=== PATIENT | female | born 1980 | race African-American/Black ===

== ENCOUNTER 2016-10-13 21:51 | Day surgery (SDC) | payer OTHER ==
[2016-10-13] MEDS ORDERED: HYDROmorphone 1 MG/ML SYRINGE ONE (22:51)
[2016-10-13] MEDS ORDERED: KETOROLAC 30 MG/ML VIAL ONE (22:51)
[2016-10-13] MEDS ORDERED: ONDANSETRON 4 MG/2 ML VIAL ONE (22:52)
[2016-10-14] MEDS ORDERED: HYDROmorphone 1 MG/ML SYRINGE IVP STA (00:41)
[2016-10-14] MEDS ORDERED: SODIUM CHLORIDE 0.9% 1,000 ML IV ONE ×2 (00:41→01:29)
[2016-10-14] MEDS ORDERED: HYDROmorphone 1 MG/ML SYRINGE ONE (00:49)
[2016-10-14] MEDS ORDERED: ACETAMINOPHEN 1,000 MG/100 ML 100 ML IV STA (01:29)
[2016-10-14] MEDS ORDERED: ACETAMINOPHEN 1,000 MG/100 ML 100 ML IV ONE (01:47)
[2016-10-14] MEDS ORDERED: DEXAMETHASONE 4 MG/ML VIAL IVP ONE (02:48)
[2016-10-14] MEDS ORDERED: fentaNYL 100 MCG/2 ML VIAL IVP ONE (02:48)
[2016-10-14] MEDS ORDERED: PROPOFOL 200 MG/20 ML VIAL IVP ONE (02:48)
[2016-10-14] MEDS ORDERED: MIDAZOLAM 2 MG/2 ML VIAL IVP ONE (02:48)
[2016-10-14] MEDS ORDERED: LIDOCAINE-MPF 2% 5 ML VIAL IM ONE (02:48)
[2016-10-14] MEDS ORDERED: miSOPROStol 200 MCG TABLET PO ONE (02:48)
[2016-10-14] MEDS ORDERED: LACTATED RINGERS 1,000 ML IV ONE ×3 (03:03→03:14)
[2016-10-14] MEDS ORDERED: miSOPROStol 200 MCG TABLET PR ONE (03:17)
== END 2016-10-14 05:12 | disposition home or self-care (01) ==
PROC: 10D17ZZ Extraction of Products of Conception, Retained, Via Natural or Artificial Opening (ICD-10-PCS; principal; 2016-10-14 02:30)
DX: O03.4 Incomplete spontaneous abortion without complication (principal)
CPT/HCPCS: 36415; 59812; 76801; 76817; 85025; 86850; 86900; 86901; 99283; A9270; J0131; J1170; J7120

== ENCOUNTER 2016-12-18 22:14 | Emergency (ER) | payer OTHER ==
[2016-12-18 22:24] VITALS: BP 117/80
[2016-12-18 22:35] LABS: BILIRUBIN,URINE NEGATIVE (NEGATIVE)
--- NOTE | 2016-12-18 22:36 | ED Physician Documentation ---
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) - Past Surgical History Past Surgical History: No - Allergies Allergies/Adverse Reactions: Allergies Allergy/AdvReac Type Severity Reaction Status Date / Time No Known Drug Allergies Allergy Verified 12/18/16 22:22 - Social History Does the pt smoke?: No Smoking Status: Never smoker Does the pt drink ETOH?: No Does the pt have substance abuse?: No - Immunizations Immunizations are current?: Yes - POLST Patient has POLST: No PD ED PE NORMAL - Vitals Vital signs reviewed: Yes - General General: Alert and oriented X 3, No acute distress - HEENT HEENT: Moist mucous membranes - Neck Neck: Supple, no meningeal sign - Cardiac Cardiac: RRR - Respiratory Respiratory: No respiratory distress, Clear bilaterally - Abdomen Abdomen: Soft, Non tender, Non distended - Back Back: No spinal TTP - Derm Derm: Warm and dry, No rash - Neuro Neuro: Alert and oriented X 3 - Psych Psych: Normal mood, Normal affect Results - Vitals Vitals: Vital Signs - 24 hr 12/18/16 22:15 Temperature 36.3 C L Heart Rate 77 Respiratory 16 Rate Blood Pressure 117/80 O2 Saturation 95 Oxygen O2 Source Room air - Labs Labs: Laboratory Tests 12/18/16 12/18/16 12/18/16 21:40 21:40 21:40 WBC 8.9 RBC 4.85 Hgb 14.0 Hct 42.2 MCV 86.9 MCH 28.9 MCHC 33.2 RDW 12.9 Plt Count 281 MPV 8.5 Neut # 5.3 Lymph # 2.8 [place] # 0.5 Eos # 0.2 Baso # 0.0 Absolute Nucleated RBC 0.00 Nucleated RBCs 0.0 Sodium 137 Potassium 4.0 Chloride 106 Carbon Dioxide 25 Anion Gap 6.0 BUN 9 Creatinine 0.5 Estimated GFR (MDRD) 170 Glucose 101 H Calcium 9.3 Total Bilirubin 0.3 AST 19 ALT 16 Alkaline Phosphatase 50 Total Protein 6.7 Albumin 3.8 Globulin 2.9 Albumin/Globulin Ratio 1.3 Lipase 32 Serum HCG, Qual POSITIVE HCG, Quant 975530.00 Urine Color Urine Clarity Urine pH Ur Specific [place] Urine Protein Urine Glucose (UA) Urine Ketones Urine Occult Blood Urine Nitrite Urine Bilirubin Urine Urobilinogen Ur Leukocyte Esterase Ur Microscopic Review Urine Culture Comments 12/18/16 22:30 WBC RBC Hgb Hct MCV MCH MCHC RDW Plt Count MPV Neut # Lymph # [place] # Eos # Baso # Absolute Nucleated RBC Nucleated RBCs Sodium Potassium Chloride Carbon Dioxide Anion Gap BUN Creatinine Estimated GFR (MDRD) Glucose Calcium Total Bilirubin AST ALT Alkaline Phosphatase Total Protein Albumin Globulin Albumin/Globulin Ratio Lipase Serum HCG, Qual HCG, Quant Urine Color YELLOW Urine Clarity CLEAR Urine pH 6.0 Ur Specific [place] 1.020 Urine Protein NEGATIVE Urine Glucose (UA) NEGATIVE Urine Ketones NEGATIVE Urine Occult Blood NEGATIVE Urine Nitrite NEGATIVE Urine Bilirubin NEGATIVE Urine Urobilinogen 0.2 (NORMAL) Ur Leukocyte Esterase NEGATIVE Ur Microscopic Review NOT INDICATED Urine Culture Comments NOT INDICATED PD MEDICAL DECISION MAKING - ED course Complexity details: reviewed results, re-evaluated patient, considered differential, d/w patient, d/w family ED course: Patient is a 36-year-old female who presents to the emergency department with vaginal bleeding while . Bedside ultrasound reveals an intrauterine with a heart rate of 162 bpm. A crown-rump length of 8 weeks and 4 days. This is consistent with her dates. No acute lab findings. We will have her follow-up with her OB for further evaluation and care. No evidence of an acute emergency medical condition at this time. Patient counseled regarding signs and symptoms for which I believe and urgent re- evaluation would be necessary. Patient with good understanding of and agreement to plan and is comfortable going home at this time This document was made in part using voice recognition software. While efforts are made to proofread this document, sound alike and grammatical errors may occur. Departure - Departure Disposition: 01 Home, Self Care Clinical Impression: Threatened Condition: Good Instructions: ED Miscarriage Poss Follow-Up: Melisa Garcia MD [Provider Admit Priv/Credential] - Within 3 Days Comments: Return if you worsen. Everything appears normal tonight. Discharge Date/Time: 12/18/16 23:24
[2016-12-18 22:37] LABS: UA CHARGE (STRIP ONLY) YES; UR CULTURE IF IND NOT INDICATED
[2016-12-18 23:00] LABS: BASOPHILS % (AUTO) 0.4 %; EOSINOPHILS # (AUTO) 0.2 10^3/uL (0.0-0.7); EOSINOPHILS % (AUTO) 1.7 %; HCT - HEMATOCRIT 42.2 % (37.0-47.0); LYMPHOCYTES # (AUTO) 2.8 10^3/uL (1.5-3.5); LYMPHOCYTES % (AUTO) 31.7 %; MEAN CORPUSCULAR HEMOGLOBIN 28.9 pg (27.0-31.0); MEAN CORPUSCULAR HGB CONC 33.2 g/dL (32.0-36.0); MEAN CORPUSCULAR VOLUME 86.9 fL (81.0-99.0); MEAN PLATELET VOLUME 8.5 fL (7.9-10.8); MONOCYTES # (AUTO) 0.5 10^3/uL (0.0-1.0); MONOCYTES % (AUTO) 6.1 %; NEUTROPHILS # (AUTO) 5.3 10^3/uL (1.5-6.6); NEUTROPHILS % (AUTO) 60.1 %; RED BLOOD COUNT 4.85 10^6/uL (4.20-5.40); RED CELL DISTRIBUTION WIDTH 12.9 % (12.0-15.0); UNCORRECTED WHITE BLOOD COUNT 8.9 x10^3/uL; WHITE BLOOD COUNT 8.9 x10^3/uL (4.8-10.8)
[2016-12-18 23:02] LABS: ALBUMIN/GLOBULIN RATIO 1.3 (1.0-2.2); BILIRUBIN,TOTAL 0.3 mg/dL (0.2-1.0); BUN - BLOOD UREA NITROGEN 9 mg/dL (6-20); CALCIUM 9.3 mg/dL (8.5-10.3); CARBON DIOXIDE - CO2 25 mmol/L (21-32); CHLORIDE 106 mmol/L (101-111); CREATININE 0.5 mg/dL (0.4-1.0); GFR - MDRD 170 (>89); GLUCOSE 101 mg/dL (70-100); LIPASE 32 U/L (22-51); SODIUM 137 mmol/L (135-145); TOTAL PROTEIN 6.7 g/dL (6.7-8.2)
== END 2016-12-18 23:24 | disposition home or self-care (01) ==
LOC: ED 22:14
DX: O20.0 Threatened abortion (principal); Z3A.09 9 weeks gestation of pregnancy
CPT/HCPCS: 36415; 80053; 81001; 81003; 83690; 84702; 84703; 85025; 87086; 99282; 99283

== ENCOUNTER 2019-08-13 15:23 | Emergency (ER) | payer OTHER ==
--- NOTE | 2019-08-13 15:58 | ED Physician Documentation ---
PD HPI SKIN - Stated complaint Stated Complaint: RASH ON R TORSO - Chief complaint Chief Complaint: General - History obtained from History obtained from: Patient, Family - History of Present Illness Timing - onset: How many days ago (3) Timing - duration: Days (3) Timing - details: Gradual onset, Still present Location: Chest, Abdomen Quality / character: Itchy, Painful Associated symptoms: Myalgias. No: Fever, Joint pain, Headache, Facial swelling, Dyspnea, Abd pain, N/V/D, Urinary sx Contributing factors: Other (has had chickenpox as a child) Similar symptoms before: Has not had sx before Recently seen: Not recently seen - Additional information Additional information: Previously well 39-year-old female has developed a rash on the right side of her torso. She is displaying little bumps with a red base of them and this is starting to itch and become painful. She did have chickenpox as a child. She is not otherwise feeling ill. She has 3 small children at home she is concerned about the contagious nature. Review of Systems Constitutional: reports: Myalgias. denies: Fever, Chills Eyes: denies: Decreased vision Ears: denies: Ear pain Nose: denies: Congestion Throat: denies: Sore throat Cardiac: denies: Chest pain / pressure, Palpitations Respiratory: denies: Dyspnea, Cough GI: reports: Abdominal Pain. 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) : None HEENT: None Psych: None Musculoskeletal: None Derm: None - Past Surgical History Past Surgical History: No - Present Medications Home Medications: Ambulatory Orders Medication Instructions Recorded Confirmed Valacyclovir HCl [Valacyclovir] 1,000 mg PO TID #21 tablet 08/13/19 - Allergies Allergies/Adverse Reactions: Allergies Allergy/AdvReac Type Severity Reaction Status Date / Time No Known Drug Allergies Allergy Verified 08/13/19 15:31 - Social History Does the pt smoke?: No Smoking Status: Never smoker Does the pt drink ETOH?: Yes Does the pt have substance abuse?: No - Immunizations Immunizations are current?: Yes - POLST Patient has POLST: No PD ED PE NORMAL - Vitals Vital signs reviewed: Yes (hypertensive ) - General General: Alert and oriented X 3, No acute distress, Well developed/nourished - HEENT HEENT: Atraumatic, PERRL, EOMI - Respiratory Respiratory: No respiratory distress - Derm Derm: Normal color, Warm and dry, Other (There are vesicular groupings to the right lateral chest wall at the margin of the ribs. The grouping of vesicles is consistent with acute zoster. There is no evidence of superinfection.) - Extremities Extremities: No deformity, No edema - Neuro Neuro: Alert and oriented X 3, front office assistant 2-12 intact, No motor deficit, No sensory deficit, Normal speech Eye Opening: Spontaneous Motor: Obeys Commands Verbal: Oriented GCS Score: 15 - Psych Psych: Normal mood, Normal affect Results - Vitals Vitals: Vital Signs - 24 hr 08/13/19 15:31 Temperature 36.8 C Heart Rate 88 Respiratory 14 Rate Blood Pressure 131/80 H O2 Saturation 99 Oxygen O2 Source Room air PD MEDICAL DECISION MAKING - ED course Complexity details: considered differential, d/w patient, d/w family ED course: 39-year-old female with shingles has 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 She is administered dexamethasone 10 mg here in the emergency department will place her on some valacyclovir and gave her some instructions about shingles. Departure - Departure Disposition: Home, Self Care Clinical Impression: Shingles Qualifiers: Herpes zoster complications: without complications Qualified Code(s): B02.9 - Zoster without complications Condition: Stable Instructions: ED Shingles Follow-Up: [facility] [Provider Group] Prescriptions: Valacyclovir HCl [Valacyclovir] 1,000 mg PO TID #21 tablet Forms: Activity restrictions
[2019-08-13] MEDS ORDERED: DEXAMETHASONE 10 MG/ML VIAL PO STA (16:15)
[2019-08-13] MEDS ORDERED: CHERRY SYRUP 10 ML UDC PO ONE (16:15)
[2019-08-13 16:24] VITALS: BP 145/89
== END 2019-08-13 16:25 | disposition home or self-care (01) ==
LOC: ED 15:23
DX: B02.9 Zoster without complications (principal)
CPT/HCPCS: 99282; 99284; A9270

== ENCOUNTER 2020-06-28 12:16 | Emergency (ER) | payer OTHER ==
[2020-06-28 12:26] VITALS: BP 132/87
--- NOTE | 2020-06-28 13:25 | ED Physician Documentation ---
PD HPI URI - Stated complaint Stated Complaint: SOA,CONGESTION - Chief complaint Chief Complaint: Resp - History obtained from History obtained from: Patient - History of Present Illness Timing - onset: How many weeks ago (1) Timing duration: Weeks (1) Timing details: Gradual onset, Still present (had cough and feverish feeling a week ago and that has improved but still with cough and feeling worsening wheezing.) Associated symptoms: Chills, Dry cough, Dyspnea. No: Hemoptysis, Chest pain, NVD Contributing factors: COPD / asthma. No: Sick contact, Travel, Immunocompromised Similar symptoms before: Has not had sx before Recently seen: Clinic (seen at [facility] and had COVID test. No Rx given.) Review of Systems Constitutional: reports: Chills, Myalgias. denies: Fever Nose: reports: Congestion. 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) : None HEENT: None Psych: None Musculoskeletal: None Derm: None - Past Surgical History Past Surgical History: No - Present Medications Home Medications: Ambulatory Orders Medication Instructions Recorded Confirmed Albuterol Sulf [Ventolin Hfa 3 - 4 puffs INH Q4HR PRN #1 inhaler 06/28/20 Inhaler] Amoxicillin 500 mg PO TID #21 capsule 06/28/20 Benzonatate [Tessalon] 100 mg PO TID PRN #20 capsule 06/28/20 dexAMETHasone [Decadron] 4 mg PO DAILY #7 tablet 06/28/20 - Allergies Allergies/Adverse Reactions: Allergies Allergy/AdvReac Type Severity Reaction Status Date / Time No Known Drug Allergies Allergy Verified 06/28/20 12:22 - Social History Does the pt smoke?: No Smoking Status: Never smoker Does the pt drink ETOH?: Yes Does the pt have substance abuse?: No - Immunizations Immunizations are current?: Yes - POLST Patient has POLST: No PD ED PE NORMAL - Vitals Vital signs reviewed: Yes - General General: Alert and oriented X 3, No acute distress, Well developed/nourished - HEENT HEENT: Ears normal, Moist mucous membranes, Pharynx benign - Neck Neck: Supple, no meningeal sign, No adenopathy - Cardiac Cardiac: RRR, No murmur - Respiratory Respiratory: No: Clear bilaterally (diffuse wheezing; no coarse sounds. ) - Abdomen Abdomen: Soft, Non tender - Derm Derm: Normal color, Warm and dry - Extremities Extremities: No edema, No calf tenderness / cord - Neuro Neuro: Alert and oriented X 3, No motor deficit, Normal speech Results - Vitals Vitals: Vital Signs - 24 hr 06/28/20 06/28/20 12:22 14:15 Temperature 36.8 C Heart Rate 85 85 Respiratory 19 20 Rate Blood Pressure 132/87 H O2 Saturation 100 Oxygen O2 Source Room air - Rads (name of study) chest xray Radiology: Prelim report reviewed (no infiltrates. ), See rad report PD MEDICAL DECISION MAKING - ED course Complexity details: reviewed results (chest xray without infiltrates. She had COVID test couple days ago on [facility], without results yet. ), considered differential, d/w patient Departure - Departure Disposition: 01 Home, Self Care Clinical Impression: Upper respiratory infection Qualifiers: URI type: unspecified URI Qualified Code(s): J06.9 - Acute upper respiratory infection, unspecified Exacerbation of asthma Qualifiers: Asthma severity: mild Asthma persistence: intermittent Qualified Code(s): J45.21 - Mild intermittent asthma with (acute) exacerbation Condition: Stable Record reviewed to determine appropriate education?: Yes Instructions: ED URI Viral W Wheezing Prescriptions: Albuterol Sulf [Ventolin Hfa Inhaler] 3 - 4 puffs INH Q4HR PRN #1 inhaler PRN Reason: Shortness Of Air/Wheezing Amoxicillin 500 mg PO TID #21 capsule dexAMETHasone [Decadron] 4 mg PO DAILY #7 tablet Benzonatate [Tessalon] 100 mg PO TID PRN #20 capsule PRN Reason: Cough Comments: Stay well-hydrated. Use the albuterol inhaler 3 to 4 puffs 4 times a day for the next several days to a week. Extra times if needed. Decadron steroid daily for the next week. Amoxicillin 3 times a day for a week for potential bacterial. Tessalon if needed for cough. Your chest x-ray appears clear without any signs of collapsed lung, pneumonia. I presume your symptoms are still bronchial with an exacerbation of asthma. With that I would anticipate improvement with use of the steroid cough medicine and inhaler through today and tomorrow. Off work today and tomorrow and to your Covid test results presumably on Tuesday. Forms: Activity restrictions Discharge Date/Time: 06/28/20 15:00
[2020-06-28] MEDS ORDERED: BENZONATATE 100 MG CAPSULE PO STA (13:50)
[2020-06-28] MEDS ORDERED: CHERRY SYRUP 10 ML UDC PO ONE (13:50)
[2020-06-28] MEDS ORDERED: AMOXICILLIN 250 MG CAPSULE PO STA (13:50)
[2020-06-28] MEDS ORDERED: ALBUTEROL 1 PUFF INH STA (13:50)
[2020-06-28] MEDS ORDERED: DEXAMETHASONE 10 MG/ML VIAL PO STA (13:50)
--- NOTE | 2020-06-28 14:46 | XRAY Report ---
PROCEDURE: Chest 1 View X-Ray INDICATIONS: COUGH TECHNIQUE: One view of the chest was acquired. COMPARISON: None. FINDINGS: Surgical changes and devices: None. Lungs and pleura: No pleural effusions or pneumothorax. Lungs are clear. Mediastinum: Mediastinal contours appear normal. Heart size is normal. Bones and chest wall: No suspicious bony lesions. Overlying soft tissues appear unremarkable. IMPRESSION: No acute cardiopulmonary abnormality identified. Reviewed by: Markel Proctor MD on 06/28/2020 1:45 PM [facility] Approved by: Markel Proctor MD on 06/28/2020 1:45 PM [facility] Station ID: [id number]
== END 2020-06-28 15:00 | disposition home or self-care (01) ==
LOC: ED 12:16
DX: J06.9 Acute upper respiratory infection, unspecified (principal); J45.21 Mild intermittent asthma with (acute) exacerbation
CPT/HCPCS: 71045; 94640; 99284; A9270